=== PATIENT | male | born 1970 | race Caucasian/White ===

== ENCOUNTER 2017-06-01 04:23 | Observation (INO) ==
[2017-06-01 05:29] LABS: Basophils # 0.1 10*3/uL (0.0-0.2); Basophils % 0.5 % (0.0-0.8); Eosinophils # 0.3 10*3/uL (0.0-0.87); Eosinophils % 2.1 % (0.00-10.9); Hematocrit 48.4 VOL% (42.0-52.0); Hemoglobin 16.8 GM/DL (14.0-18.0); Immature Granulocytes % 0.3 %; Immature Granulocytes Absolute 0.04 #; Lymphocytes # 2.2 10*3/uL (1.4-4.0); Lymphocytes % 17.1 % (21.2-54.2); Mean Corpuscular HGB Conc 34.7 GM/DL (32-36); Mean Corpuscular Hemoglobin 31 PG (27-34); Mean Platelet Volume 8.7 FL (9.6-12.0); Monocytes # 1.2 10*3/uL (0.11-0.8); Monocytes % 8.9 % (1.7-12.7); Neutrophils # 9.3 10*3/uL (1.4-7.4); Neutrophils % 71.1 % (38.7-73.9); Platelet Count 324 T/CUMM (130-400); Red Cell Distribution Width 12.7 % (9.3-17.3); White Blood Count 13.1 T/CUMM (4-12)
[2017-06-01 05:57] LABS: Bilirubin,Total 0.8 MG/DL (0.2-1.0); Calcium 8.9 MG/DL (8.5-10.1); Osmolality,Calculated 277.5 MOS/KG (273-304); Potassium 3.7 MMOL/L (3.5-5.1); Total Protein 7.4 G/DL (6.4-8.3)
[2017-06-01 06:00] LABS: Apearance,Urine CLEAR (Clear); Bilirubin,Urine Negative (Negative); Blood, Urine Negative (Negative); Glucose,Urine (UA) Negative (Negative); Ketones,Urine Negative (Negative); Mucus,Urine Occasional /LPF (Occasional); Nitrite,Urine Negative (Negative); Protein,Urine Negative; Urine Color Yellow (Yellow); Urine Specific Gravity 1.014 (1.001-1.035); Urine Urobilinogen < 2.0 EU/DL (0.2-1.0); WBC,Urine <1 /HPF (0-6)
[2017-06-01] MEDS ORDERED: AMPICILLIN/SULBACTAM 3,000 MG in SODIUM CHLORIDE 0.9% 100 ML IV STA (08:04)
[2017-06-01] MEDS ORDERED: AMPICILLIN/SULBACTAM 1,500 MG VIAL ONE (08:12)
[2017-06-01] MEDS ORDERED: cefOXitin 2,000 MG in SYRINGE 1 EACH IV ONE (09:11)
[2017-06-01] MEDS ORDERED: MORPHINE 2 MG/1 ML SYRINGE IV PRN (10:45)
[2017-06-01] MEDS ORDERED: ONDANSETRON 4 MG/2 ML VIAL IV PRN ×2 (10:45→13:58)
[2017-06-01] MEDS ORDERED: BUPIVACAINE 0.25% 50 ML VIAL ONE (11:49)
[2017-06-01] MEDS ORDERED: ePHEDrine 50 MG/ML AMP ONE (13:59)
[2017-06-01] MEDS ORDERED: PROPOFOL 200 MG/20 ML VIAL IV ONE (14:00)
[2017-06-01] MEDS ORDERED: SEVOFLURANE 1 UNIT/15 MINUTE INH ONE (14:00)
[2017-06-01] MEDS ORDERED: KETOROLAC 30 MG/1 ML VIAL ONE (14:01)
[2017-06-01] MEDS ORDERED: NEOSTIGMINE 10 MG/10 ML VIAL ONE (14:01)
[2017-06-01] MEDS ORDERED: MIDAZOLAM 2 MG/2 ML VIAL ONE (14:01)
[2017-06-01] MEDS ORDERED: ROCURONIUM 100 MG/10 ML VIAL IV ONE (14:01)
[2017-06-01] MEDS ORDERED: SUCCINYLCHOLINE 200 MG/10 ML VIAL ONE (14:01)
[2017-06-01] MEDS ORDERED: fentaNYL 100 MCG/2 ML VIAL ONE (14:01)
[2017-06-01] MEDS ORDERED: GLYCOPYRROLATE 0.4 MG/2 ML VIAL ONE ×2 (14:01)
[2017-06-01] MEDS ORDERED: LACTATED RINGERS 1,000 ML IV ONE (14:02)
[2017-06-01] MEDS ORDERED: HYDROmorphone 2 MG/1 ML VIAL ONE (14:26)
[2017-06-01] MEDS ORDERED: ONDANSETRON 4 MG/2 ML VIAL ONE (14:27)
[2017-06-01] MEDS: HYDROmorphone 2 MG/1 ML VIAL IV PRN ×2 (14:30→14:37)
[2017-06-01] MEDS: LACTATED RINGERS 1,000 ML IV SCH ×2 (15:00→22:12)
[2017-06-01] MEDS ORDERED: ceFAZolin 2,000 MG in PREMIX 1 EACH IV SCH (16:00)
[2017-06-01] MEDS: cefOXitin 2,000 MG in SYRINGE 1 EACH IV SCH (18:11)
[2017-06-02] MEDS: LACTATED RINGERS 1,000 ML IV SCH (06:36)
[2017-06-02] MEDS: cefOXitin 2,000 MG in SYRINGE 1 EACH IV SCH ×2 (06:50)
[2017-06-02 08:29] LABS: Basophils % 0.4 % (0.0-0.8); Eosinophils # 0.3 10*3/uL (0.0-0.87); Eosinophils % 2.8 % (0.00-10.9); Hematocrit 45.9 VOL% (42.0-52.0); Hemoglobin 15.5 GM/DL (14.0-18.0); Immature Granulocytes % 0.3 %; Immature Granulocytes Absolute 0.03 #; Lymphocytes # 1.9 10*3/uL (1.4-4.0); Lymphocytes % 18.8 % (21.2-54.2); Mean Corpuscular HGB Conc 33.8 GM/DL (32-36); Mean Corpuscular Hemoglobin 30 PG (27-34); Mean Corpuscular Volume 89.3 FL (87-102); Mean Platelet Volume 8.7 FL (9.6-12.0); Monocytes # 0.9 10*3/uL (0.11-0.8); Monocytes % 8.6 % (1.7-12.7); Neutrophils % 69.1 % (38.7-73.9); Platelet Count 291 T/CUMM (130-400); Red Blood Count 5.14 MC/CUMM (3.8-5.5); Red Cell Distribution Width 12.9 % (9.3-17.3); White Blood Count 10.1 T/CUMM (4-12)
[2017-06-02 08:53] LABS: Calcium 8.8 MG/DL (8.5-10.1); Osmolality,Calculated 280.3 MOS/KG (273-304); Potassium 4.1 MMOL/L (3.5-5.1)
[2017-06-02] MEDS ORDERED: PANTOPRAZOLE 40 MG TABLET PO SCH (09:00)
[2017-06-02 12:03] VITALS: BP 142/80
== END 2017-06-02 12:00 | disposition home or self-care (01) ==
LOC: N.ED 04:23 → N.EDINP 09:12 → INTOOBSV 09:12 → N.5E 10:32
PROVIDERS: ADMIT Surgery; ATTEND Surgery